=== PATIENT | male | born 1960 | race Caucasian/White ===

== ENCOUNTER 2021-09-11 07:03 | Day surgery (SDC) | payer BC ==
[~2021-09-11 07:03] MED LIST: Sodium Chloride 0.9% 10 ML Syringe FLUSH PRN
[2021-09-11] MEDS ORDERED: Glycopyrrolate 0.2 MG/ML SDV IVPUSH ONE (07:04)
[2021-09-11] MEDS ORDERED: Midazolam 1 MG/ML 2 ML SDV ONE (07:51)
[2021-09-11] MEDS ORDERED: Lidocaine 2% 5 ML SDV ONE (07:51)
[2021-09-11] MEDS ORDERED: Propofol 200 MG/20 ML SDV ONE (07:51)
[2021-09-11] MEDS: Lactated Ringers 1,000 ML IV SCH (07:57)
== END 2021-09-11 09:00 | disposition home or self-care (01) ==
LOC: KA.SDS 07:03
PROVIDERS: ATTEND Family Medicine
DX: K31.89 Other diseases of stomach and duodenum (principal); I78.1 Nevus, non-neoplastic; E78.2 Mixed hyperlipidemia; E55.9 Vitamin D deficiency, unspecified; G47.33 Obstructive sleep apnea (adult) (pediatric); E66.9 Obesity, unspecified; I25.10 Atherosclerotic heart disease of native coronary artery without angina pectoris; I10 Essential (primary) hypertension; Z68.39 Body mass index [BMI] 39.0-39.9, adult; Z79.899 Other long term (current) drug therapy; Z79.82 Long term (current) use of aspirin; Z20.822 Contact with and (suspected) exposure to COVID-19
CPT/HCPCS: J2250; J2704; J3490; J7120